=== PATIENT | female | born 1965 | race Caucasian/White ===

== ENCOUNTER 2024-06-15 16:56 | Emergency (ER) | payer SELFPAY ==
[2024-06-15] VITALS (10 sets, daily range): BP systolic 123–191; BP diastolic 73–88; PULSE 74–79; BMI 27.3
[2024-06-15 17:19] LABS: % Basophils 0.9 % (0-2); % Eosinophils 3.8 % (0-6); % Immature Granulocytes 0.2 % (0-0.5); % Lymphocytes 31.2 % (20.5-51.1); % Monocytes 7.7 % (1.7-9.3); % Neutrophils 56.2 % (42.2-75.2); Absolute Basophils 0.1 10^3/uL (0-0.2); Absolute Eosinophils 0.4 10^3/uL (0-0.7); Absolute Lymphocytes 3.1 10^3/uL (1.2-3.4); Absolute Monocytes 0.8 10^3/uL (0.1-0.6); Absolute Neutrophils 5.6 10^3/uL (1.4-6.5); Hematocrit 41.8 % (37.0-47.0); Hemoglobin 14.5 g/dL (12.0-16.0); Mean Corp Hgb Conc. 34.7 g/dL (33.0-37.0); Mean Corpuscular Hgb 28.9 pg (27.0-31.0); Mean Corpuscular Volume 83.4 fL (81.0-99.0); Mean Platelet Volume 9.2 fL (7.4-10.4); Nucleated Red Blood Cells % 0 %; Platelet Count 265 10^3/uL (130-400); Red Blood Cell Count 5.01 10^6/uL (4.20-5.40); Red Cell Dist. Width 12.6 % (11.5-14.5); White Blood Cell Count 9.9 10^3/uL (4.8-10.8)
[2024-06-15 17:38] LABS: ALT (SGPT) 42 U/L (0-35); AST (SGOT) 29 U/L (14-36); Albumin 4.8 g/dl (3.5-5.0); Alkaline Phosphatase 73 U/L (38-126); Blood Urea Nitrogen 16 mg/dl (7-17); Calcium 9.8 mg/dl (8.4-10.2); Carbon Dioxide 25 mmol/L (22-30); Chloride 106 mmol/L (98-107); Glucose 114 mg/dl (70-99); Potassium 5.2 mmol/L (3.5-5.1); Sodium 141 mmol/L (135-145); Total Bilirubin 0.4 mg/dl (0.2-1.3); Total Protein 7.9 g/dl (6.3-8.2); eGFR > 60.00
[2024-06-15 17:49] LABS: Troponin I < 0.012 ng/ml
--- NOTE | 2024-06-15 18:06 | EDRN ---
Pt OOB to BR at this time. Will obtain urine spec if possible.
--- NOTE | 2024-06-15 18:19 | EDRN ---
Mirian MEZA in room w/ pt at this time.
--- NOTE | 2024-06-15 18:29 | ED.GENMED ---
History of Present Illness
General
Chief Complaint: Blood Pressure Problem
Source: patient and other (Friend with patient)
Exam Limitations: other (Language barrier)
Time Seen by Provider: 06/15/24 17:56
History of Present Illness
History of Present Illness:
This is a 58 year old female that comes in with hypertension. Friend with patient is interpreting states that for the past 2 days her BP has been elevated. State that she is here visiting. States that she has also had pain under her left breast
that comes and goes. State that she has had nausea and some dizziness when standing. States that she has a slight headache and the nausea. Denies any fever, chills, SOB, abd pain, vomiting, diarrhea, urinary burning.
Past History
Past History
ED Past Medical History: None; Negative Asthma, HTN, Hypercholesterolemia or NIDDM
ED Past Surgical History: Gynecological (Laparoscopic surgery)
Social History
Tobacco: Non-smoker
Alcohol: None
Personal:
Living: with family
Review of Systems
Review of Systems
All Other Systems: ROS reviewed and negative except as documented in HPI and ROS
Constitutional: Reports no symptoms; Denies fever or chills
EENT: Reports no symptoms
Respiratory: Reports no symptoms; Denies cough or trouble breathing
Cardiac: Reports chest pain
ABD/GI: Reports nausea; Denies abdominal pain, vomiting or diarrhea
: Reports no symptoms; Denies dysuria, frequency or urgency
Musculoskeletal: Reports no symptoms
Skin: Reports no symptoms
Neurological: Reports dizzy and headache
Psychiatric: Reports no symptoms
Phy Exam
General Physical Exam
General Presentation: well appearing and no apparent distress
General age: appears stated age
General Skin: warm and dry
General Habitus: normal
General Mental: alert
General Hydration: dry mucous membranes
ENT Exam
ENT Exam: TM's normal, pharynx normal and neck supple
Eye Exam
Eye Exam: EOMI
Cardiovascular Exam
Cardiovascular Exam: regular rate/rhythm, no edema, no murmur and normal peripheral pulses
Pulmonary Exam
Pulmonary Exam: lungs clear, no respiratory distress, no rales, chest non tender, no crackles, no rhonchi, no wheezing and no cough
Gastrointestinal Exam
Gastrointestinal Exam: normal bowel sounds, non tender, soft, no organomegaly, no pulsatile mass and non distended
Musculoskeletal Exam
Musculoskeletal Exam: full ROM and no edema
Skin Exam
Skin Exam: normal color, warm/dry, no rash and no petechia
Psychiatric Exam
Psychiatric Exam: normal mood/affect
Course
Orders/Labs/Results
Orders:
Orders
06/15/24 17:05
ECG [Electrocardiogram (*1)] Urgent
Reason for Study: Chest Pain
EKG- Treatment ONCE
06/15/24 17:11
Complete Blood Count/With Diff Urgent
Comprehensive Metabolic Panel Urgent
Troponin I Urgent
06/15/24 18:27
CR Chest - 2 Views Urgent
Comment:
Reason For Exam: Left sided chest pain
06/15/24 18:28
EKG- Treatment ONCE
06/15/24 18:30
Orthostatic VS- Treatment ONCE
06/15/24 18:31
Acetaminophen [Tylenol] 1,000 mg PO NOW STA
06/15/24 18:32
Ondansetron Injectable [Zofran] 4 mg IV NOW STA
06/15/24 18:45
D-Dimer Urgent
06/15/24 19:04
CT Head W/o Iv Contrast Urgent
Comment:
Reason For Exam: Headache, dizziness.
06/15/24 19:58
Troponin I Urgent
Urinalysis Reflex To Culture Urgent
Date Specimen was Collected: 06/15/24
Time Specimen was Collected: 19:49
Urine Microscopic Reflex Cult Urgent
06/15/24 20:00
Electrocardiogram (*1) Urgent
Reason for Study: Chest Pain
Other Reason for Exam: Repeat with Troponin
Abnormal Lab Results
06/15/24 06/15/24
17:11 19:58
Absolute Monos (auto) 0.8 H 10^3/uL
(0.1-0.6)
Potassium 5.2 H mmol/L
(3.5-5.1)
Glucose 114 H mg/dl
(70-99)
ALT 42 H U/L
(0-35)
Leukocyte Esterase Rfl Trace A
(Negative)
06/15/24 17:11
06/15/24 17:11
Glucose nonfasting. ALT mildly elevated. Troponin <0.012, D-dimer 0.30
Second Troponin <0.012, Urine negative for infection.
Vital Signs
Initial and Last Documented VS:
Initial Vital Signs
Temp Pulse Resp BP Pulse Ox
98.1 F 78 20 191/88 99
06/15/24 17:00 06/15/24 17:00 06/15/24 17:00 06/15/24 17:00 06/15/24 17:00
Last Documented Vital Signs
Temp Pulse Resp BP Pulse Ox
98.1 F 84 20 140/77 95
06/15/24 17:00 06/15/24 20:08 06/15/24 20:08 06/15/24 20:08 06/15/24 20:08
MDM/Problems Addressed
Differential Diagnosis Includes:
Musculoskeletal pain, PNA
MDM/Problems Addressed:
This is a 58 year old female that comes in with c/o increased BP for the past 2 days. States that she also had a slight headache, dizziness and that she as nauseated.
Will check labs. ECG, Medicate for headache pain and musculoskeletal pain and nausea. Will get chest x-ray.
Back into see patient and friend who is translating. Explained that her Both Troponin are normal and her D-dimer is negative. CT of the head is negative and chest x-ray is normal. This may be musculoskeletal pain. Patient can use Tylenol or
Ibuprofen for pain. Follow up with the family doctor when she gets home. Watch her sodium intake while here as this will affect her BP. BP at this time is 123/73. Return with any concerns.
Chronic conditions affecting care:
NA
Acute Exacerbation and/or Progression of Chronic Illness:
NA
*Radiology
Radiology exam reviewed: preliminary read by ED provider (Chest- Negative for active disease. ) and radiology read reviewed (CT head-NO acute intracranial abnormality Right sphenoid sinus mucosal diseaes/sinusitis. Chest-No acute cardiopulmonary
process)
*Pulse Oximetry
Patient hypoxic: no
*EKG
Interpreted by ED Provider?: Yes
Heart Rate: 78
Rate: normal
Rhythm: sinus
[place]: normal axis
Interval: normal interval
QRS Pattern: normal QRS
Ischemia: no ischemia
*Sustainability Manager Interpretation
Rate: normal
Heart Rate: 73
Rhythm: sinus
*Critical Care Note
Total Time (30-74mins, 75-104mins- exclusive of procedures): Not Applicable
ED Attending Note
-
Portions of this chart may have been created with voice recognition software.� Occasional wrong word or��sound alike� substitutions may have occurred due to the inherent limitations of voice recognition software.
Discharge Plan
Departure
Patient Disposition: Home (Routine Discharge)
Date of Disposition: 06/15/24
Time of Disposition: 21:16
Patient with high blood pressure during this ER visit?: No
Condition: Good
Covid-19: Not Applicable
Discharge Problem:
Headache, Chest pain, musculoskeletal, Costochondritis
Instructions: Costochondritis, Headache, Adult ED
Prescriptions:
No Action
Unobtainable
0
Referrals:
NONE,* [Family Provider] -
Activity Restrictions/Additional Instructions:
As discussed, your blood work shows that both Troponin are normal and your D-dimer is negative. Your CT of the head is normal along with your chest x-ray. This is most likely musculoskeletal pain. You may use Tylenol 1000mg every 6 hours for pain
and alternate with Ibuprofen 600mg every 6 hours with food for pain. Follow up with the family doctor when you get home. IF YOU HAVE INCREASED OR CHANGING PAIN, OR YOU HAVE ANY OTHER CONCERNS PLEASE RETURN TO THE EMERGENCY ROOM.
Interventions
Interventions:
*Risk Screen - Suicide Last Done: 06/15/24 17:00
*General Assessment Last Done: 06/15/24 17:00
*Neglect/Abuse Screening Last Done: 06/15/24 17:00
ED- Fall Risk Assessment Last Done: 06/15/24 18:58
*ED COVID-19 Vaccine History Last Done: 06/15/24 20:05
ED- Cardiac Assessment Last Done: 06/15/24 20:00
ED- Neurological Assessment Last Done: 06/15/24 20:00
ED- Pulmonary Assessment Last Done: 06/15/24 20:00
Discharge Date and Time
Print Language: [place]
--- NOTE | 2024-06-15 19:01 | EDRN ---
During orthostatic vs pt had sl dizziness/spinning noted that did not go away upon sitting and on standing dizziness was more severe w/ pt swaying slightly.
--- NOTE | 2024-06-15 19:07 | EDRN ---
Pt was explained going to xray at this time w/ [place] strategic manager #[id number]
[2024-06-15 20:06] LABS: Urine Albumin Negative (Neg - Trace); Urine Bilirubin Negative (Negative); Urine Character Clear (Clear); Urine Color Yellow; Urine Glucose Negative (Negative); Urine Ketone Negative (Negative); Urine Leukocyte Trace (Negative); Urine Nitrite Negative (Negative); Urine Occult Blood Negative (Negative); Urine Specific Gravity 1.005 (<1.030); Urine Urobilinogen Negative (Neg - 1+); Urine pH 6.5 (5.0-9.0)
[2024-06-15] MEDS: TYLENOL 1000 MG PO (20:10)
[2024-06-15] MEDS: ZOFRAN 4 MG IV (20:11)
[2024-06-15 20:15] LABS: Urine Red Blood Cell 0-2 /HPF (0-2); Urine Squamous Cell 0-2 /LPF (Few); Urine White Cell 0-2 /HPF (0-5)
[2024-06-15 20:31] LABS: Troponin I < 0.012 ng/ml
== END 2024-06-15 21:35 | disposition home or self-care (01) ==
LOC: EMR 16:56
PROVIDERS: Clinical Nurse Specialist Family Health; Emergency Medicine; EMERGENCY PHYSICIAN Student in an Organized Health Care Education/Training Program
DX: R51.9 Headache, unspecified (principal); R07.89 Other chest pain; R42 Dizziness and giddiness; R03.0 Elevated blood-pressure reading, without diagnosis of hypertension; R11.0 Nausea; M94.0 Chondrocostal junction syndrome [Tietze]
CPT/HCPCS: 99284; 96374; 70450; 71046; 80053; 81003; 81015; 84484; 85025; 85379; 93005